=== PATIENT | male | born 1990 | race Caucasian/White ===

== ENCOUNTER → 2016-09-11 | Outpatient (REF) | LOC: WSOH 07:27 | DX: Z01.89 Encounter for other specified special examinations (principal) ==

== ENCOUNTER → 2016-09-11 | Outpatient (REF) | LOC: WSOH 08:25 | DX: Z02.1 Encounter for pre-employment examination (principal) ==

== ENCOUNTER 2016-11-11 19:01 | Observation (INO) | payer BC ==
[2016-11-11] VITALS (71 sets, daily range): BP systolic 134; BP diastolic 76; PULSE 70; TEMP 97.9; O2SAT 96–100
[~2016-11-11] VITALS: Ht 182.9 cm; Wt 91.0 kg
[2016-11-11 19:39] LABS: BASO # 0.1 (0.0-0.2); BASO % 0.4 % (0.0-2.0); GRAN # 11.2 (1.4-6.5); GRAN % 78.4 % (42.2-75.2); HEMATOCRIT 42.3 % (42.0-52.0); HEMOGLOBIN 15.4 g/dl (13.5-18.0); LYMPH # 1.5 (1.2-3.4); LYMPH % 10.5 % (20.0-51.0); MEAN CELL VOLUME 89 fl (80.0-100.0); MEAN CORPUSCULAR HEMOGLOBIN 32 pg (27.0-31.0); MEAN CORPUSCULAR HGB CONC 36 g/dl (33.0-37.0); MEAN PLATELET VOLUME 9.8 fl (7.4-10.4); MONO # 1.5 (0.1-0.6); MONO % 10.2 % (1.7-9.3); PLATELET COUNT 263 K/mm3 (130-400); RED BLOOD COUNT 4.75 M/mm3 (4.20-5.60); REDCELL DISTRIBUTION WIDTH-CV 11.8 % (11.5-14.5); WHITE BLOOD COUNT 14.2 K/mm3 (4.8-10.8)
[2016-11-11 19:47] LABS: ADJUSTED CALCIUM 9.2 mg/dL (8.4-10.2); ALBUMIN 5.6 gm/dL (3.5-5.0); BILIRUBIN,TOTAL 2.4 mg/dL (0.0-1.0); CALCIUM 10.5 mg/dL (8.4-10.2); CREATININE, serum 1.55 mg/dL (0.66-1.25); POTASSIUM 4.1 mmol/L (3.4-5.0); TOTAL PROTEIN 8.8 gm/dL (6.4-8.2)
[2016-11-11 20:24] LABS: PH 5 (5-8); SQUAMOUS EPITHELIAL None Seen /hpf; URINE APPEARANCE Clear; URINE BACTERIA Rare /hpf; URINE BILIRUBIN Negative (NEGATIVE); URINE BLOOD 1+ (NEGATIVE); URINE COLOR Yellow; URINE GLUCOSE Negative (NEGATIVE); URINE KETONE 1+ (NEGATIVE); URINE RBC 0-2 /hpf; URINE UROBILINOGEN Negative (NEGATIVE); URINE WBC 0-2 /hpf
[2016-11-12] VITALS (825 sets, daily range): BP systolic 107–135; BP diastolic 51–85; PULSE 64–76; TEMP 98; O2SAT 80–100
[2016-11-12 00:56] LABS: MAGNESIUM 2.2 mg/dL (1.6-2.3); PHOSPHOROUS 5.1 mg/dL (2.5-4.5)
[2016-11-12 03:10] LABS: BASO % 0.4 % (0.0-2.0); EOS # 0.1 (0.0-0.7); EOS % 0.7 % (0-4.0); GRAN # 3.4 (1.4-6.5); GRAN % 50.8 % (42.2-75.2); HEMATOCRIT 37.6 % (42.0-52.0); HEMOGLOBIN 13.3 g/dl (13.5-18.0); LYMPH % 29.1 % (20.0-51.0); MEAN CELL VOLUME 91 fl (80.0-100.0); MEAN CORPUSCULAR HEMOGLOBIN 32 pg (27.0-31.0); MEAN CORPUSCULAR HGB CONC 35 g/dl (33.0-37.0); MEAN PLATELET VOLUME 9.5 fl (7.4-10.4); MONO # 1.3 (0.1-0.6); MONO % 18.9 % (1.7-9.3); PLATELET COUNT 203 K/mm3 (130-400); RED BLOOD COUNT 4.12 M/mm3 (4.20-5.60); REDCELL DISTRIBUTION WIDTH-CV 11.9 % (11.5-14.5); WHITE BLOOD COUNT 6.7 K/mm3 (4.8-10.8)
[2016-11-12 03:24] LABS: ADJUSTED CALCIUM 8.4 mg/dL (8.4-10.2); ALBUMIN 4.1 gm/dL (3.5-5.0); BILIRUBIN,TOTAL 1.3 mg/dL (0.0-1.0); CALCIUM 8.5 mg/dL (8.4-10.2); CREATININE, serum 1.15 mg/dL (0.66-1.25); POTASSIUM 3.7 mmol/L (3.4-5.0); TOTAL PROTEIN 6.5 gm/dL (6.4-8.2)
== END 2016-11-12 14:46 | disposition home or self-care (01) ==
LOC: COL.ER → ICU 20:41 → IMCU 22:43
PROVIDERS: Family Medicine; Nurse Practitioner Family
DX: M62.82 Rhabdomyolysis (principal); E86.0 Dehydration; K21.9 Gastro-esophageal reflux disease without esophagitis; N17.9 Acute kidney failure, unspecified; E86.1 Hypovolemia; E87.1 Hypo-osmolality and hyponatremia
CPT/HCPCS: C9113; G0378; J1170; J2060; J2405; J7030

== ENCOUNTER 2016-11-13 13:02 | Outpatient (RCR) | payer OTHER | END 2017-02-11 | disposition still patient (30) | LOC: WSOH | DX: T67 Effects of heat and light (principal); M62.89 Other specified disorders of muscle; X02 Exposure to controlled fire in building or structure; Y99.0 Civilian activity done for income or pay ==